=== PATIENT | female | born 1995 | race African-American/Black ===

== ENCOUNTER 2016-06-04 19:30 | Emergency (ER) | payer OTHER, SELFPAY ==
[2016-06-04] MEDS ORDERED: Acetaminophen 325 MG TAB ONE (20:06)
[2016-06-04 20:32] LABS: Blood, Urine Moderate (Negative); Glucose, Urine (Dipstick) Negative (Negative); Ketone, Urine > or equal to 80 mg/dL (Negative); Nitrite Negative (Negative); Protein, Urine (Dipstick) 100 mg/dL (Neg-Trace)
[2016-06-04 20:35] LABS: RBC/HPF 0-3 HPF (0-3)
[2016-06-04 20:36] LABS: Bacteria/HPF 3+ HPF (None Seen)
--- NOTE | 2016-06-04 21:54 | ERRECORD ---
[facility] EM[facility]GENCY [facility]ORD HPI FLU-LIKE SYNDROME CHIEF COMPLAINT: Patient presents for evaluation of body aches, Patient presents for evaluation of fatigue, Denies fever. (19:55 PMYE) CHIEF COMPLAINT: Patient presents for evaluation of body aches, Patient presents for evaluation of weakness. (SatJun 05, 2016 00:04 PMYE) HISTORIAN: History provided by patient. (19:55 PMYE) HISTORIAN: History provided by patient. (SatJun 05, 2016 00:04 PMYE) LOCATION: Symptoms are generalized. (19:55 PMYE) LOCATION: Symptoms are generalized. (SatJun 05, 2016 00:04 PMYE) TIME COURSE: Gradual onset of symptoms, Symptoms are worsening. (19:55 PMYE) TIME COURSE: Gradual onset of symptoms, There has been no change in the patient's symptoms over time. (SatJun 05, 2016 00:04 PMYE) ASSOCIATED WITH: No associated headache, nausea, myalgia, arthralgia. (19:55 PMYE) ASSOCIATED WITH: No associated symptoms, 20 y/o F w/ generalizaed body aches and weakness x 1 day. No abdominal pain. (SatJun 05, 2016 00:04 PMYE) EXACERBATED BY: Patient's condition exacerbated by nothing. (19:55 PMYE) EXACERBATED BY: Patient's condition exacerbated by nothing. (SatJun 05, 2016 00:04 PMYE) RELIEVED BY: Patient's condition relieved by nothing. (19:55 PMYE) RELIEVED BY: Patient's condition relieved by nothing. (SatJun 05, 2016 00:04 PMYE) ROS (19:56 PMYE) CONSTITUTIONAL: Negative constitutional review of systems, Historian denies chills, denies fatigue, denies fever. EYES: Negative eye review of systems, Historian denies eye pain, denies eye redness, denies eye discharge. ENT: Negative ears, nose, throat review of systems, Historian denies dysphasia, denies epistaxis, denies otalgia, denies sore throat. CARDIOVASCULAR: Negative cardiovascular review of systems, Historian denies chest pain, denies dyspnea on exertion, denies syncope, denies palpitations. RESPIRATORY: Negative respiratory review of systems, Historian denies cough, denies shortness of breath, denies wheezing. GI: Negative gastrointestinal review of systems, Historian denies abdominal pain, denies constipation, denies diarrhea, denies nausea, denies vomiting. GENITOURINARY FEMALE: Negative genitourinary review of systems, Historian denies dysuria, denies urgency, denies vaginal bleeding, denies vaginal discharge. MUSCULOSKELETAL: Historian denies arthralgias, reports myalgias. SKIN: Negative skin review of systems, Historian denies rash, denies skin changes. SKIN PED: Negative skin review of systems, Historian denies rash. &a-1R&a+25V*p+0X*[id number]*c202B*c15G*c2P*p-0X&a-25V&a+1R Name: Brett Ware : 1995 F20 MedRec: [id number] AcctNum: [id number] Prepared: Sally Jun 05, 2016 00:47 by Interface Page 1 of 3 pMD [facility] EMERGENCY RECORD NEUROLOGIC: Negative neurologic review of systems, Historian denies confusion, denies focal weakness, denies headache. HEMO/LYMPHATIC: Historian denies adenopathy. PSYCHIATRIC: Negative psychiatric review of systems. PSYCHIATRIC/BEHAVIORAL: Negative psychiatric review of systems. PAST MEDICAL HISTORY (19:39 [facility]) MEDICAL HISTORY: No past medical history, Flu vaccine up to date, Tetanus immunization up to date. FEMALE SURGICAL HISTORY: Patient has no surgical history. PSYCHIATRIC HISTORY: No previous psychiatric history. SOCIAL HISTORY: Patient denies alcohol use, Patient denies drug use, Patient has no smoking history, Lives at home, with family. KNOWN ALLERGIES No Known Drug Allergies CURRENT MEDICATIONS No recorded medications VITAL SIGNS VITAL SIGNS: BP: 119/73, Pulse: 81, Resp: 16, Temp: 99.3 (Oral), Pain: 10 (Constant), O2 sat: 100 on Room Air, Time: 06/04/2016 19:34. (19:34 [facility]) BP: 100/62, Pulse: 82, Resp: 18, Temp: 98.1, Pain: 7, O2 sat: 98 on RA, Time: 06/04/2016 21:31. (21:31 [facility]) PHYSICAL EXAM (20:00 PMYE) CONSTITUTIONAL: Vital Signs Reviewed, Patient afebrile, Pulse normal, Blood pressure normal, Respiratory rate normal, Patient appears non toxic. HEAD: Head exam included findings of head atraumatic, normocephalic. EYES: Eye exam included findings of eyelids normal to inspection, Pupils equally round and reactive to light, Extraocular muscles intact. ENT: ENT exam normal, Pharynx exam normal, Uvula exam normal, Tonsil exam normal. NECK: Neck exam normal. RESPIRATORY CHEST: Respiratory and chest exam normal, Breath sounds clear, No wheezing, No rales. ABDOMEN FEMALE: Abdominal exam normal, Abdominal exam included findings of abdomen nontender, Bowel sounds normal. BACK: Back exam normal. NEURO: Neuro exam normal, [place] coma scale 15, Neuro exam findings include patient oriented to person, place and time, Speech normal. SKIN: Skin exam normal. PSYCHIATRIC: Psychiatric exam normal, Psychiatric exam included &a-1R&a+25V*p+0X*u0707E*c202B*c15G*c2P*p-0X&a-25V&a+1R Name: Brett Ware : 1995 F20 MedRec: [id number] AcctNum: [id number] Prepared: SatJun 05, 2016 00:47 by Interface Page 2 of 3 pMD [facility] EMERGENCY RECORD findings of patient oriented to person place and time, Normal affect. MEDICATION ADMINISTRATION SUMMARY Drug Name: Tylenol, Dose Ordered: 650 mg, Route: Oral, Status: Given, Time: 20:12 06/04/2016, Drug Name: Zofran oral, Dose Ordered: 4 mg, Route: Oral, Status: Given, Time: 20:12 06/04/2016, Detailed record available in Medication Service section. DOCTOR NOTES (SatJun 05, 2016 00:09 PMYE) TEXT: Patient is well appearing. NAD. Urine WNL, Influenza negative. FHT's identified via dopplar. Pt appropriate for D/C w/ Primary f/u. PROBLEM LIST No recorded problems DIAGNOSIS (21:26 PMYE) FINAL: PRIMARY: viral syndrome. PRESCRIPTION (21:26 PMYE) Zofran oral: TABLET : 4 mg : ORAL : Quantity: 4 Unit: mg Route: ORAL Schedule: every 6 hours PRN Dispense: 20 Unit: tab(s) May substitute. Refills: No Refills . NOTES: No Refills. DISPOSITION PATIENT: Disposition Type: Discharge, Disposition: *Discharge Home, Condition: Good. (21:26 PMYE) Patient left the department. (21:41 TERESA) Jin: TERESA=LINDA Franco, Doreen MEDEL=LINDA Wells, Elida PMYE=DO Handy Paul &a-1R&a+25V*p+0X*[id number]*c202B*c15G*c2P*p-0X&a-25V&a+1R Name: Brett Ware : 1995 F20 MedRec: [id number] AcctNum: [id number] Prepared: Sally Jun 05, 2016 00:47 by Interface Page 3 of 3 pMD MTDD
--- NOTE | 2016-06-04 21:54 | ERRECORD ---
[facility] H[facility] FLU-LIKE SYNDROME (19:55 PMYE) CHIEF COMPLAINT: Patient presents for evaluation of body aches, Patient presents for evaluation of fatigue, Denies fever. HISTORIAN: History provided by patient. LOCATION: Symptoms are generalized. TIME COURSE: Gradual onset of symptoms, Symptoms are worsening. ASSOCIATED WITH: No associated headache, nausea, myalgia, arthralgia. EXACERBATED BY: Patient's condition exacerbated by nothing. RELIEVED BY: Patient's condition relieved by nothing. ROS (19:56 PMYE) CONSTITUTIONAL: Negative constitutional review of systems, Historian denies chills, denies fatigue, denies fever. EYES: Negative eye review of systems, Historian denies eye pain, denies eye redness, denies eye discharge. ENT: Negative ears, nose, throat review of systems, Historian denies dysphasia, denies epistaxis, denies otalgia, denies sore throat. CARDIOVASCULAR: Negative cardiovascular review of systems, Historian denies chest pain, denies dyspnea on exertion, denies syncope, denies palpitations. RESPIRATORY: Negative respiratory review of systems, Historian denies cough, denies shortness of breath, denies wheezing. GI: Negative gastrointestinal review of systems, Historian denies abdominal pain, denies constipation, denies diarrhea, denies nausea, denies vomiting. GENITOURINARY FEMALE: Negative genitourinary review of systems, Historian denies dysuria, denies urgency, denies vaginal bleeding, denies vaginal discharge. MUSCULOSKELETAL: Historian denies arthralgias, denies myalgias. SKIN: Negative skin review of systems, Historian denies rash, denies skin changes. SKIN PED: Negative skin review of systems, Historian denies rash. NEUROLOGIC: Negative neurologic review of systems, Historian denies confusion, denies focal weakness, denies headache. HEMO/LYMPHATIC: Historian denies adenopathy. PSYCHIATRIC: Negative psychiatric review of systems. PSYCHIATRIC/BEHAVIORAL: Negative psychiatric review of systems. PAST MEDICAL HISTORY (19:39 [facility]) MEDICAL HISTORY: No past medical history, Flu vaccine up to date, Tetanus immunization up to date. FEMALE SURGICAL HISTORY: Patient has no surgical history. PSYCHIATRIC HISTORY: No previous psychiatric history. SOCIAL HISTORY: Patient denies alcohol use, Patient denies drug use, Patient has no smoking history, Lives at home, with family. KNOWN ALLERGIES &a-1R&a+25V*p+0X*[id number]*c202B*c15G*c2P*p-0X&a-25V&a+1R Name: Brett Ware : 1995 F20 MedRec: [id number] AcctNum: [id number] Prepared: SatJun 04, 2016 21:45 by Interface Page 1 of 3 pMD [facility] EMERGENCY RECORD No Known Drug Allergies CURRENT MEDICATIONS No recorded medications VITAL SIGNS VITAL SIGNS: BP: 119/73, Pulse: 81, Resp: 16, Temp: 99.3 (Oral), Pain: 10 (Constant), O2 sat: 100 on Room Air, Time: 06/04/2016 19:34. (19:34 [facility]) BP: 100/62, Pulse: 82, Resp: 18, Temp: 98.1, Pain: 7, O2 sat: 98 on RA, Time: 06/04/2016 21:31. (21:31 [facility]) PHYSICAL EXAM (20:00 PMYE) CONSTITUTIONAL: Vital Signs Reviewed, Patient afebrile, Pulse normal, Blood pressure normal, Respiratory rate normal, Patient appears non toxic. HEAD: Head exam included findings of head atraumatic, normocephalic. EYES: Eye exam included findings of eyelids normal to inspection, Pupils equally round and reactive to light, Extraocular muscles intact. ENT: ENT exam normal, Pharynx exam normal, Uvula exam normal, Tonsil exam normal. NECK: Neck exam normal. RESPIRATORY CHEST: Respiratory and chest exam normal, Breath sounds clear, No wheezing, No rales. ABDOMEN FEMALE: Abdominal exam normal, Abdominal exam included findings of abdomen nontender, Bowel sounds normal. BACK: Back exam normal. NEURO: Neuro exam normal, [place] coma scale 15, Neuro exam findings include patient oriented to person, place and time, Speech normal. SKIN: Skin exam normal. PSYCHIATRIC: Psychiatric exam normal, Psychiatric exam included findings of patient oriented to person place and time, Normal affect. MEDICATION ADMINISTRATION SUMMARY Drug Name: Tylenol, Dose Ordered: 650 mg, Route: Oral, Status: Given, Time: 20:12 06/04/2016, Drug Name: Zofran oral, Dose Ordered: 4 mg, Route: Oral, Status: Given, Time: 20:12 06/04/2016, Detailed record available in Medication Service section. PROBLEM LIST No recorded problems DIAGNOSIS (21:26 PMYE) FINAL: PRIMARY: viral syndrome. &a-1R&a+25V*p+0X*w0735I*c202B*c15G*c2P*p-0X&a-25V&a+1R Name: Brett Ware : 1995 F20 MedRec: [id number] AcctNum: [id number] Prepared: SatJun 04, 2016 21:45 by Interface Page 2 of 3 pMD [facility] EMERGENCY RECORD PRESCRIPTION (21:26 PMYE) Zofran oral: TABLET : 4 mg : ORAL : Quantity: 4 Unit: mg Route: ORAL Schedule: every 6 hours PRN Dispense: 20 Unit: tab(s) May substitute. Refills: No Refills . NOTES: No Refills. DISPOSITION PATIENT: Disposition Type: Discharge, Disposition: *Discharge Home, Condition: Good. (21:26 PMYE) Patient left the department. (21:41 TERESA) Jin: TERESA=LINDA Franco, Doreen [facility]=LINDA Wells, Elida PMYE=DO Handy Paul &a-1R&a+25V*p+0X*[id number]*c202B*c15G*c2P*p-0X&a-25V&a+1R Name: Brett Ware : 1995 F20 MedRec: [id number] AcctNum: [id number] Prepared: SatJun 04, 2016 21:45 by Interface Page 3 of 3 pMD MTDD
--- NOTE | 2016-06-04 21:58 | PICIS ---
[facility] EMERGENCY RECORD TRIAGE (SatJun 04, 2016 19:37 [facility]) TRIAGE NOTES: C/O WEAKNESS AND BODY ACHES SINCE THIS MORNING. 11 WEEKS . (SatJun 04, 2016 19:37 [facility]) PATIENT: NAME: Brett Ware, AGE: 20, GENDER: female, : Na 1995, TIME OF GREET: SatJun 04, 2016 19:31, PREFERRED LANGUAGE: Mosotho, ETHNICITY: Not or , ECODE BILLING MAP: [facility] ER, SSN: [id number], Zip Code: [address], KG WEIGHT: 77.11 (est.), PHONE: , , , PERSON ID: [id number], PCP: KERMIT DICKERSON . (SatJun 04, 2016 19:37 [facility]) COMPLAINT: WEAK,BODY ACHE SINCE THIS AM,11 WKS PREG. (SatJun 04, 2016 19:37 [facility]) ADMISSION: URGENCY: 4 Non Urgent, ADMISSION SOURCE: Home, TRANSPORT: CAR, BED: ER -05. (SatJun 04, 2016 19:37 [facility]) ASSESSMENT: Symptoms began 06/04/2016 06:00. (19:39 [facility]) PAIN: Patient complains of pain described as, aching, on a scale 0-10 patient rates pain as 10, Location BODY ACHES, Pain is constant, Onset was 06/04/2016 06:00. (19:39 [facility]) IMMUNIZATIONS: Flu vaccine up to date, Tetanus immunization up to date. (19:39 [facility]) SIRS SCORING: Heart Rate 55-109 (0), Temp range 96.8-101.1 (0), respiratory rate 12-24 (0), Mental Status altered: no (0). (19:39 [facility]) TRIAGE SCREENING: Patient denies suicidal ideation, Patient denies presence of domestic violence. (19:39 [facility]) TREATMENTS IN PROGRESS: Treatments given Prehospital: NONE. (19:39 [facility]) PROVIDERS: TRIAGE NURSE: Elida Wells RN. (SatJun 04, 2016 19:37 [facility]) VITAL SIGNS: BP 119/73, Pulse 81, Resp 16, Temp 99.3, (Oral), Pain 10, (Constant), O2 Sat 100, on Room Air, Time 06/04/2016 19:34. (19:34 [facility]) PREVIOUS VISIT ALLERGIES: No Known Drug Allergies. (SatJun 04, 2016 19:37 [facility]) No Known Drug Allergies. (19:39 [facility]) KNOWN ALLERGIES No Known Drug Allergies CURRENT MEDICATIONS No recorded medications VITAL SIGNS VITAL SIGNS: BP: 119/73, Pulse: 81, Resp: 16, Temp: 99.3 (Oral), Pain: 10 (Constant), O2 sat: 100 on Room Air, Time: 06/04/2016 19:34. (19:34 [facility]) BP: 100/62, Pulse: 82, Resp: 18, Temp: 98.1, Pain: 7, O2 sat: 98 on RA, Time: 06/04/2016 21:31. [facility] &a-1R&a+25V*p+0X*d0118S*c202B*c15G*c2P*p-0X&a-25V&a+1R Name: Brett Ware Kar : 1995 F20 MedRec: [id number] AcctNum: [id number] Prepared: SatJun 05, 2016 00:54 by Interface Page 1 of 8 pMD [facility] EMERGENCY RECORD NURSING ASSESSMENT: HEAD-TO-TOE CONSTITUTIONAL: Complex assessment performed, Patient arrives, via hospital wheelchair, History obtained from patient, Patient appears comfortable, Patient cooperative, Patient alert, Oriented to person, place and time, Skin warm, Skin dry, Skin normal in color, Mucous membranes pink, Mucous membranes moist, Patient is well-groomed, Patient complains of WEAKNESS/BODY ACHES. (19:44 [facility]) PAIN: aching pain, "MY WHOLE BODY HURTS", Onset of pain 06/04/2016 06:00, constant, on a scale 0-10 patient rates pain as 10. (19:44 [facility]) SKIN: Skin assessment findings include skin warm, Skin dry, Skin normal in color. (19:44 [facility]) NEURO: Pupils equally round and reactive to light, Able to close eyes, Face symmetrical, Speech normal, GCS:, Eye opening: (4) - Spontaneous, Verbal: (5) - Oriented/conversive, Motor: (6) - Obeys commands/Spontaneous, GCS Total: 15, no associated fever, no associated vomiting. (19:44 [facility]) ENT: Ear assessment findings include ear normal to inspection, Nasal assessment findings include nose normal to inspection, Mouth and throat assessment findings include mouth inspection normal, no associated fever, no associated headache. (19:44 [facility]) RESPIRATORY/CHEST: Breath sounds clear, Respiratory assessment findings include respiratory effort easy, Respirations regular, Conversing normally, Neck and chest exam findings include trachea midline, Chest expansion equal, Chest movement symmetrical, no associated cough noted, no associated fever. (19:44 [facility]) ABDOMEN: no associated nausea, no associated vomiting, no associated diarrhea, no associated constipation. (19:44 [facility]) GENITOURINARY FEMALE: Female genitourinary assessment findings include external genitalia normal, no associated urinary complaints, no associated vaginal discharge, no associated vaginal bleeding, , per patient, Gestational age 9-12 weeks by history, milestones: 11 WEEKS PER PT, : 2, Spontaneous abortions: 1, MISCARRIED AT 5 1/2 WEEKS. (19:50 [facility]) LEFT LOWER EXTREMITY: Left lower extremity assessment findings include capillary refill less than 2 seconds, Skin color normal, Skin temperature warm, Distal sensation intact, Muscle tone normal, Notes: C/O WEAKNESS. (19:44 [facility]) RIGHT LOWER EXTREMITY: Right lower extremity assessment findings include capillary refill less than 2 seconds, Skin color normal, Skin temperature warm, Distal sensation intact, Muscle tone normal, Notes: C/O WEAKNESS. (19:44 [facility]) NURSING PROCEDURE: DISCHARGE NOTE (21:31 [facility]) DISCHARGE: Patient discharged to home, ambulating without assistance, family driving, accompanied by //partner, Summary of Care printed/ provided, Discharge instructions given to patient, Simple or moderate discharge teaching performed, . Educated and provided handout regarding diagnosis of: &a-1R&a+25V*p+0X*b3404D*c202B*c15G*c2P*p-0X&a-25V&a+1R Name: Brett Ware : 1995 F20 MedRec: [id number] AcctNum: [id number] Prepared: Sally Jun 05, 2016 00:54 by Interface Page 2 of 8 pMD [facility] EMERGENCY RECORD Viral syndrome Follow up with PCP in 1-2 days, Prescriptions given and instructions on side effects given, Name of prescription(s) given: Shelia Moore person(s) verbalized understanding of discharge instructions and follow-up care. BELONGINGS: Belongings and valuables with patient upon arrival to the Emergency Department include:, Belongings and valuables with patient at time of discharge include:, Belongings remain with patient, Valuables remain with patient. VITAL SIGNS: BP: 100, / 62, Pulse: 82, Resp: 18, Temp: 98.1, Pain: 7, O2 sat: 98, on: RA. NURSING PROCEDURE: ENT (19:55 [facility]) ENT: Nasal swab collected, labeled in the presence of the patient and sent to lab for testing of, influenza A, influenza B, collected by LINDA BAXTER. NURSING PROCEDURE: URINE COLLECTION (20:05 [facility]) PATIENT IDENTIFIER: Patient actively involved in identification process, Patient's identity verified by patient stating name, Patient's identity verified by patient stating date, Patient's identity verified by hospital ID bracelet. URINE COLLECTION FEMALE: Urine collected by void, urine mari in color, and clear, Specimen labeled in the presence of the patient and sent to lab. SAFETY: Side rails up, Cart/Stretcher in lowest position, Call light within reach, Hospital ID band on. ORDER DETAILS Order Name: Influenza A&B Ag Screen, Status: Active, Time: 19:53 06/04/2016, User: PMYE, - Ordered for: DO Handy Paul, - Entered by: DO Handy Paul - [facility] Jun 04, 2016 19:53, - Quantity: 1, Order Name: Urinalysis w/ Rflx Microscopic, Status: Active, Time: 19:53 06/04/2016, User: PMYE, - Ordered for: DO Handy Paul, - Entered by: DO Handy Paul - [facility] Jun 04, 2016 19:53, - Quantity: 1. MEDICATION ADMINISTRATION SUMMARY Drug Name: Tylenol, Dose Ordered: 650 mg, Route: Oral, Status: Given, Time: 20:12 06/04/2016, Drug Name: Zofran oral, Dose Ordered: 4 mg, Route: Oral, Status: Given, Time: 20:12 06/04/2016, Detailed record available in Medication Service section. MEDICATION SERVICE (20:12 [facility]) &a-1R&a+25V*p+0X*l7747B*c202B*c15G*c2P*p-0X&a-25V&a+1R Name: Brett Ware : 1995 F20 MedRec: [id number] AcctNum: [id number] Prepared: SatJun 05, 2016 00:54 by Interface Page 3 of 8 pMD [facility] EMERGENCY RECORD Tylenol: Order: Tylenol (acetaminophen) - Dose: 650 mg : Oral Ordered by: Madi Handy DO Entered by: Madi Handy DO SatJun 04, 2016 20:01 , Acknowledged by: Elida Wells RN SatJun 04, 2016 20:05 Documented as given by: Elida Wells RN SatJun 04, 2016 20:12 Patient, Medication, Dose, Route and Time verified prior to administration. Amount given: 650MG, Site: Medication administered P.O., Patient appears Awake and alert- acceptable, Correct patient, time, route, dose and medication confirmed prior to administration, Patient advised of actions and side-effects prior to administration, Allergies confirmed and medications reviewed prior to administration. Zofran oral: Order: Zofran oral (ondansetron HCl) - Dose: 4 mg : Oral Ordered by: Madi Handy DO Entered by: Madi Handy DO SatJun 04, 2016 20:01 , Acknowledged by: Elida Wells RN SatJun 04, 2016 20:05 Documented as given by: Elida Wells RN SatJun 04, 2016 20:12 Patient, Medication, Dose, Route and Time verified prior to administration. Amount given: 4MG, Site: Medication administered P.O., Patient appears Awake and alert- acceptable, Correct patient, time, route, dose and medication confirmed prior to administration, Patient advised of actions and side-effects prior to administration, Allergies confirmed and medications reviewed prior to administration. HPI FLU-LIKE SYNDROME CHIEF COMPLAINT: Patient presents for evaluation of body aches, Patient presents for evaluation of fatigue, Denies fever. (19:55 [facility]) CHIEF COMPLAINT: Patient presents for evaluation of body aches, Patient presents for evaluation of weakness. (SatJun 05, 2016 00:04 [facility]) HISTORIAN: History provided by patient. (19:55 [facility]) HISTORIAN: History provided by patient. (SatJun 05, 2016 00:04 [facility]) LOCATION: Symptoms are generalized. (19:55 [facility]) LOCATION: Symptoms are generalized. (SatJun 05, 2016 00:04 [facility]) TIME COURSE: Gradual onset of symptoms, Symptoms are worsening. (19:55 [facility]) TIME COURSE: Gradual onset of symptoms, There has been no change in the patient's symptoms over time. (SatJun 05, 2016 00:04 [facility]) ASSOCIATED WITH: No associated headache, nausea, myalgia, arthralgia. (19:55 [facility]) ASSOCIATED WITH: No associated symptoms, 20 y/o F w/ generalizaed body aches and weakness x 1 day. No abdominal pain. (SatJun 05, 2016 00:04 [facility]) EXACERBATED BY: Patient's condition exacerbated by nothing. (19:55 [facility]) EXACERBATED BY: Patient's condition exacerbated by nothing. (SatJun 05, 2016 00:04 [facility]) RELIEVED BY: Patient's condition relieved by nothing. (19:55 [facility]) RELIEVED BY: &a-1R&a+25V*p+0X*q2033B*c202B*c15G*c2P*p-0X&a-25V&a+1R Name: Brett Ware : 1995 F20 MedRec: [id number] AcctNum: [id number] Prepared: SatJun 05, 2016 00:54 by Interface Page 4 of 8 pMD [facility] EMERGENCY RECORD Patient's condition relieved by nothing. (SatJun 05, 2016 00:04 [facility]) ROS (19:56 [facility]) CONSTITUTIONAL: Negative constitutional review of systems, Historian denies chills, denies fatigue, denies fever. EYES: Negative eye review of systems, Historian denies eye pain, denies eye redness, denies eye discharge. ENT: Negative ears, nose, throat review of systems, Historian denies dysphasia, denies epistaxis, denies otalgia, denies sore throat. CARDIOVASCULAR: Negative cardiovascular review of systems, Historian denies chest pain, denies dyspnea on exertion, denies syncope, denies palpitations. RESPIRATORY: Negative respiratory review of systems, Historian denies cough, denies shortness of breath, denies wheezing. GI: Negative gastrointestinal review of systems, Historian denies abdominal pain, denies constipation, denies diarrhea, denies nausea, denies vomiting. GENITOURINARY FEMALE: Negative genitourinary review of systems, Historian denies dysuria, denies urgency, denies vaginal bleeding, denies vaginal discharge. MUSCULOSKELETAL: Historian denies arthralgias, reports myalgias. SKIN: Negative skin review of systems, Historian denies rash, denies skin changes. SKIN PED: Negative skin review of systems, Historian denies rash. NEUROLOGIC: Negative neurologic review of systems, Historian denies confusion, denies focal weakness, denies headache. HEMO/LYMPHATIC: Historian denies adenopathy. PSYCHIATRIC: Negative psychiatric review of systems. PSYCHIATRIC/BEHAVIORAL: Negative psychiatric review of systems. PAST MEDICAL HISTORY (19:39 [facility]) MEDICAL HISTORY: No past medical history, Flu vaccine up to date, Tetanus immunization up to date. FEMALE SURGICAL HISTORY: Patient has no surgical history. PSYCHIATRIC HISTORY: No previous psychiatric history. SOCIAL HISTORY: Patient denies alcohol use, Patient denies drug use, Patient has no smoking history, Lives at home, with family. PHYSICAL EXAM (20:00 [facility]) CONSTITUTIONAL: Vital Signs Reviewed, Patient afebrile, Pulse normal, Blood pressure normal, Respiratory rate normal, Patient appears non toxic. HEAD: Head exam included findings of head atraumatic, normocephalic. EYES: Eye exam included findings of eyelids normal to inspection, Pupils equally round and reactive to light, Extraocular muscles &a-1R&a+25V*p+0X*p9939V*c202B*c15G*c2P*p-0X&a-25V&a+1R Name: Brett Ware : 1995 F20 MedRec: [id number] AcctNum: [id number] Prepared: SatJun 05, 2016 00:54 by Interface Page 5 of 8 pMD [facility] EMERGENCY RECORD intact. ENT: ENT exam normal, Pharynx exam normal, Uvula exam normal, Tonsil exam normal. NECK: Neck exam normal. RESPIRATORY CHEST: Respiratory and chest exam normal, Breath sounds clear, No wheezing, No rales. ABDOMEN FEMALE: Abdominal exam normal, Abdominal exam included findings of abdomen nontender, Bowel sounds normal. BACK: Back exam normal. NEURO: Neuro exam normal, Dirk coma scale 15, Neuro exam findings include patient oriented to person, place and time, Speech normal. SKIN: Skin exam normal. PSYCHIATRIC: Psychiatric exam normal, Psychiatric exam included findings of patient oriented to person place and time, Normal affect. EVENTS ATTENDING: DO Handy Paul saw the patient at SatJun 05, 2016 00:10. (SatJun 05, 2016 00:10 PM[facility]) TRANSFER: Triage to Emergency Emergency Room -05. (SatJun 04, 2016 19:37 [facility]) Removed from Emergency Emergency Room -05. (21:41 [facility]) DOCTOR NOTES (SatJun 05, 2016 00:09 PM[facility]) TEXT: Patient is well appearing. NAD. Urine WNL, Influenza negative. FHT's identified via dopplar. Pt appropriate for D/C w/ Primary f/u. PROBLEM LIST No recorded problems DIAGNOSIS (21:26 PM[facility]) FINAL: PRIMARY: viral syndrome. DISPOSITION PATIENT: Disposition Type: Discharge, Disposition: *Discharge Home, Condition: Good. (21:26 PM[facility]) Patient left the department. (21:41 [facility]) INSTRUCTION (21:27 [facility]) DISCHARGE: VIRAL SYNDROME (ADULT). FOLLOWUP: Follow up with Primary Care Physician in 1-2 days. SPECIAL: Follow-up with your PCP. PRESCRIPTION (21:26 [facility]) Zofran oral: TABLET : 4 mg : ORAL : Quantity: 4 Unit: mg Route: ORAL Schedule: every 6 hours PRN Dispense: 20 Unit: tab(s) May substitute. Refills: No Refills . NOTES: No Refills. &a-1R&a+25V*p+0X*u7868A*c202B*c15G*c2P*p-0X&a-25V&a+1R Name: Brett Ware : 1995 F20 MedRec: [id number] AcctNum: [id number] Prepared: SatJun 05, 2016 00:54 by Interface Page 6 of 8 pMD [facility] EMERGENCY RECORD IMAGING (21:47 [facility]) *DISCHARGE INSTRUCTIONS RECEIPT: Image captured from scanner. *SUPPLY CHARGE SHEET: Image captured from scanner. ADMIN (SatJun 05, 2016 00:44 PM[facility]) DIGITAL SIGNATURE: DO Handy Paul. RESULTS (SatJun 05, 2016 00:09 PMYE) MICROBIOLOGY: Influenza A&B Ag Screen: [id number] Collection DT: SatJun 04, 2016 20:10, See comment below , @ ER ROOM#: ER-05 Source: Nasal swab Spec Desc: , Influenza A Antigen: NEGATIVE for the , presence of , INFLUENZA A Antigen , Influenza B Antigen: NEGATIVE for the , presence of , INFLUENZA B Antigen , The rapid Flu A&B test can distinguish between influenza A , Influenza A&B Ag Screen See comment below , and B viruses, but it does not differentiate influenza , Influenza A&B Ag Screen See comment below , subtypes. , Influenza A&B Ag Screen See comment below , Influenza A&B Ag Screen See comment below , Influenza A&B Ag Screen See comment below , Influenza A&B Ag Screen See comment below , characteristics of this device with human specimens infected , Influenza A&B Ag Screen See comment below , with the 2008 H1N1 influenza virus have not been , Influenza A&B Ag Screen See comment below , established. For example: this test cannot distinguish , Influenza A&B Ag Screen See comment below , influenza infections caused by novel H1N1 influenza A , Influenza A&B Ag Screen See comment below , viruses versus seasonal influenza A viruses. , Influenza A&B Ag Screen See comment below , , Influenza A&B Ag Screen See comment below , A negative result does not exclude influenza virus , Influenza A&B Ag Screen See comment below , infection; therefore, if more conclusive testing is desired, , Influenza A&B Ag Screen See comment below , follow up confirmatory testing is warranted., Influenza A&B Ag Screen See comment below . LABORATORY: Urine Microscopic Collection DT: SatJun 04, 2016 20:15, RBC/HPF 0-3 HPF, Range (0-3), *WBC/HPF 4-6 - H HPF, Range (0-3), *Squamous Epithelial 11-20 - H HPF, Range (0-3), &a-1R&a+25V*p+0X*u3172F*c202B*c15G*c2P*p-0X&a-25V&a+1R Name: Brett Ware : 1995 F20 MedRec: [id number] AcctNum: [id number] Prepared: SatJun 05, 2016 00:54 by Interface Page 7 of 8 pMD [facility] EMERGENCY RECORD *Bacteria/HPF 3+ - H HPF, Range (None Seen). Urinalysis w/ Rflx Microscopic Collection DT: SatJun 04, 2016 20:15, Color Yellow , Range (Yellow), Clarity Hazy , Range (Clear), Specific [place], Urine 1.032 , Range (1.002-1.036), pH, Urine 6.0 , Range (5.0-9.0), *Leukocyte Trace - H , Range (Negative), Nitrite Negative , Range (Negative), *Protein, Urine (Dipstick) 100 - H mg/dL, Range (Neg-Trace), Glucose, Urine (Dipstick) Negative mg/dL, Range (Negative), *Ketone, Urine > or equal to 80 - mg/dL, * H , Range (Negative), Urobilinogen 1.0 mg/dL, Range (0.2-1.0), *Blood, Urine Moderate - H , Range (Negative). Jin: TERESA=LINDA Franco, Doreen [facility]=LINDA Wells, Elida PMYE=DO Handy Paul &a-1R&a+25V*p+0X*s5716S*c202B*c15G*c2P*p-0X&a-25V&a+1R Name: Brett Ware : 1995 F20 MedRec: [id number] AcctNum: [id number] Prepared: SatJun 05, 2016 00:54 by Interface Page 8 of 8 pMD [facility]TD[facility]
== END 2016-06-04 21:31 | disposition home or self-care (01) ==
LOC: NAV ERS 19:30
DX: O98.511 Other viral diseases complicating pregnancy, first trimester (principal); B34.9 Viral infection, unspecified; Z3A.11 11 weeks gestation of pregnancy
CPT/HCPCS: 81003; 81015; 99283

== ENCOUNTER 2016-06-28 22:27 | Emergency (ER) | payer MEDICAID, OTHER, SELFPAY | END 2016-06-29 00:11 | disposition home or self-care (01) | LOC: NAV ERS 22:27 | DX: O99.89 Other specified diseases and conditions complicating pregnancy, childbirth and the puerperium (principal); R51 Headache | CPT/HCPCS: 99284 ==

== ENCOUNTER 2016-07-06 22:50 | Emergency (ER) | payer OTHER ==
[2016-07-06 23:24] LABS: Blood, Urine Moderate (Negative); Glucose, Urine (Dipstick) Negative (Negative); Ketone, Urine Trace mg/dL (Negative); Nitrite Negative (Negative); Protein, Urine (Dipstick) 100 mg/dL (Neg-Trace)
[2016-07-06 23:27] LABS: Bilirubin Negative (Negative)
[2016-07-06] MEDS ORDERED: Acetaminophen/Codeine 30-300mg Tablet ONE ×2 (23:27→23:29)
[2016-07-06 23:28] LABS: Bacteria/HPF 1+ HPF (None Seen)
[2016-07-07] MEDS ORDERED: Cephalexin 500 MG CAP ONE (00:01)
== END 2016-07-07 00:01 | disposition home or self-care (01) ==
LOC: NAV ERS 22:50
DX: O23.42 Unspecified infection of urinary tract in pregnancy, second trimester (principal); Z3A.16 16 weeks gestation of pregnancy; Z79.899 Other long term (current) drug therapy
CPT/HCPCS: 81003; 81015; 87077; 87086; 99284

== ENCOUNTER 2016-08-07 21:28 | Emergency (ER) | payer OTHER ==
[2016-08-07] MEDS ORDERED: Sodium Chloride 0.9% 1,000 ML ONE (22:04)
[2016-08-07 22:31] LABS: Bilirubin Negative (Negative); Blood, Urine Small (Negative); Clarity Clear (Clear); Glucose, Urine (Dipstick) Negative (Negative); Leukocyte Small (Negative); Nitrite Negative (Negative); Protein, Urine (Dipstick) 30 mg/dL (Neg-Trace)
[2016-08-07 22:34] LABS: #Basophils 0.1 thou/uL (0.0-0.2); #Eosinphils 0.1 thou/uL (0.0-0.7); #Neutrophils 10.3 thou/uL (1.40-6.50); %Basophils 0.6 % (0.0-1.0); %Eosinophils 0.8 % (0.0-10.0); %Lymphocytes 20.8 % (21.0-51.0); %Monocytes 6.6 % (0.0-10.0); %Neutrophils 71.2 % (42.0-75.0); Hemoglobin 9.6 g/dL (12.0-16.0); Mean Corpuscular HGB CONC 33.6 g/dL (32.0-36.0); Mean Corpuscular Hemoglobin 28.8 pg (27.0-31.0); Mean Corpuscular Volume 85.7 fl (81.0-99.0); Mean Platelet Volume 8.3 fL (7.4-10.4); Platelet Count 289 thou/uL (130-400); RBC Distribution Width 12.6 % (11.5-14.5); Red Blood Cell (RBC) Count 3.34 mill/uL (4.20-5.40); White Blood Cell (WBC) Count 14.4 thou/uL (4.8-10.8)
[2016-08-07 22:45] LABS: Anion Gap 15 mmol/L (10-20); BUN (Urea Nitrogen) 7 mg/dL (7.0-18.7); Calc. Creatinine Clearance 0 mL/min (70-130); Calcium 8.6 mg/dL (7.8-10.44); Carbon Dioxide 18 mmol/L (22-29); Chloride 108 mmol/L (98-107); Estimated GFR-MDRD Greater than 90; Glucose 101 mg/dL (70-105); Potassium 3.8 mmol/L (3.5-5.1); Sodium 137 mmol/L (136-145)
[2016-08-07 22:47] LABS: Specific Gravity, Urine 1.034 (1.002-1.036)
[2016-08-07 22:49] LABS: Bacteria/HPF Rare-Few HPF (None Seen); RBC/HPF 0-3 HPF (0-3); Squamous Epithelial 0-3 HPF (0-3)
[2016-08-07] MEDS ORDERED: Acetaminophen 500 MG TAB ONE (23:07)
[2016-08-07] MEDS ORDERED: Nitrofurantoin Macrocrystal 50 MG CAP ONE (23:07)
== END 2016-08-07 23:30 | disposition home or self-care (01) ==
LOC: NAV ERS 21:28
DX: O99.89 Other specified diseases and conditions complicating pregnancy, childbirth and the puerperium (principal); R10.32 Left lower quadrant pain; Z3A.20 20 weeks gestation of pregnancy
CPT/HCPCS: 80048; 81003; 81015; 85025; 87086; 87480; 87510; 87660; 96360; J7050

== ENCOUNTER 2016-08-28 13:19 | Emergency (ER) | payer OTHER | END 2016-08-28 13:44 | disposition home or self-care (01) | LOC: NAV ERS 13:19 | DX: O9A.212 Injury, poisoning and certain other consequences of external causes complicating pregnancy, second trimester (principal); S29.012A Strain of muscle and tendon of back wall of thorax, initial encounter; Z3A.23 23 weeks gestation of pregnancy; Z79.899 Other long term (current) drug therapy; X58.XXXA Exposure to other specified factors, initial encounter | CPT/HCPCS: 99283 ==

== ENCOUNTER 2016-09-29 03:17 | Emergency (ER) | payer MEDICAID, OTHER | END 2016-09-29 03:52 | disposition home or self-care (01) | LOC: NAV ERS 03:17 | DX: O99.89 Other specified diseases and conditions complicating pregnancy, childbirth and the puerperium (principal); R10.32 Left lower quadrant pain; Z3A.28 28 weeks gestation of pregnancy; Z79.899 Other long term (current) drug therapy ==

== ENCOUNTER 2016-12-18 01:26 | Emergency (ER) | payer MEDICAID, OTHER | END 2016-12-18 02:43 | disposition home or self-care (01) | LOC: NAV ERS 01:26 | DX: O99.89 Other specified diseases and conditions complicating pregnancy, childbirth and the puerperium (principal); R10.2 Pelvic and perineal pain; Z3A.39 39 weeks gestation of pregnancy | CPT/HCPCS: 99283 ==

== ENCOUNTER 2017-06-25 15:48 | Emergency (ER) | payer OTHER ==
[2017-06-25] MEDS ORDERED: Silver Sulfadiazine 1% Cream 50 GM JAR ONE (16:09)
== END 2017-06-25 16:30 | disposition home or self-care (01) ==
LOC: NAV ERS 15:48
DX: T23.121A Burn of first degree of single right finger (nail) except thumb, initial encounter (principal); X10.1XXA Contact with hot food, initial encounter
CPT/HCPCS: 16000; 99001

== ENCOUNTER 2018-12-22 02:42 | Emergency (ER) | payer OTHER, SELFPAY ==
[2018-12-22 03:16] LABS: Bilirubin Negative (Negative); Blood, Urine Moderate (Negative); Clarity Clear (Clear); Glucose, Urine (Dipstick) Negative (Negative); Leukocyte Negative (Negative); Nitrite Negative (Negative); Protein, Urine (Dipstick) Negative (Neg-Trace)
[2018-12-22 03:19] LABS: Pregnancy Test - Urine (BHCG) Negative (Negative); Pregu Control Background? CLEAR/WHITE (CLR/WHITE); Pregu Control Bar Appear? YES (CONTROL BAR)
[2018-12-22 03:21] LABS: Bacteria/HPF None Seen HPF (None Seen); Squamous Epithelial 0-3 HPF (0-3); WBC/HPF None Seen HPF (0-3)
[2018-12-22 03:36] LABS: #Basophils 0.1 thou/uL (0.0-0.2); #Eosinphils 0.2 thou/uL (0.0-0.7); #Lymphocytes 3.5 thou/uL (1.20-3.40); #Monocytes 0.8 thou/uL (0.11-0.59); #Neutrophils 4.9 thou/uL (1.40-6.50); %Basophils 0.6 % (0.0-1.0); %Eosinophils 2.5 % (0.0-10.0); %Lymphocytes 37.3 % (21.0-51.0); %Monocytes 8.2 % (0.0-10.0); %Neutrophils 51.3 % (42.0-75.0); Hemoglobin 9.8 g/dL (12.0-16.0); Mean Corpuscular HGB CONC 30.7 g/dL (32.0-36.0); Mean Corpuscular Hemoglobin 25.3 pg (27.0-31.0); Mean Corpuscular Volume 82.3 fL (78.0-98.0); Mean Platelet Volume 7.5 fL (7.4-10.4); Platelet Count 352 thou/uL (130-400); RBC Distribution Width 12.8 % (11.5-14.5); Red Blood Cell (RBC) Count 3.89 mill/uL (4.20-5.40); White Blood Cell (WBC) Count 9.5 thou/uL (4.8-10.8)
[2018-12-22 03:52] LABS: ALT (SGPT) 16 U/L (8-55); AST (SGOT) 19 U/L (5-34); Alkaline Phosphatase 71 U/L (40-150); Anion Gap 15 mmol/L (10-20); BUN (Urea Nitrogen) 10 mg/dL (7.0-18.7); Bilirubin, Total 0.1 mg/dL (0.2-1.2); Calc. Creatinine Clearance 0 mL/min (70-130); Calcium 9.2 mg/dL (7.8-10.44); Carbon Dioxide 23 mmol/L (22-29); Chloride 105 mmol/L (98-107); Estimated GFR-MDRD Greater than 90; Globulin 3.4 g/dL (2.4-3.5); Glucose 95 mg/dL (70-105); Lipase 35 U/L (8-78); Protein, Total 7.4 g/dL (6.0-8.3); Sodium 139 mmol/L (136-145)
[2018-12-23 20:23] LABS: Chlam.trachomatis by PCR,Urine Not Detected (NotDetected)
== END 2018-12-22 04:13 | disposition home or self-care (01) ==
LOC: NAV ERS 02:42
DX: R10.31 Right lower quadrant pain (principal); D64.9 Anemia, unspecified; R31.29 Other microscopic hematuria
CPT/HCPCS: 80053; 81003; 81015; 81025; 83690; 85025; 87086; 87480; 87491; 87510; 87591; 87660; 99284

== ENCOUNTER 2019-01-14 00:20 | Emergency (ER) | payer MEDICAID, SELFPAY ==
[2019-01-14 01:00] LABS: Pregnancy Test - Urine (BHCG) POSITIVE (Negative); Pregu Control Background? CLEAR/WHITE (CLR/WHITE); Pregu Control Bar Appear? YES (CONTROL BAR); Specific Gravity 1.032 (1.002-1.036)
== END 2019-01-14 01:09 | disposition home or self-care (01) ==
LOC: NAV ERS 00:20
DX: O26.891 Other specified pregnancy related conditions, first trimester (principal); M54.5 Low back pain; Z3A.01 Less than 8 weeks gestation of pregnancy
CPT/HCPCS: 81025; 99283

== ENCOUNTER 2019-02-05 10:24 | Emergency (ER) | payer MEDICAID, OTHER ==
[2019-02-05] MEDS ORDERED: Ondansetron PF 4 MG/2 ML Vial ONE (11:16)
[2019-02-05] MEDS ORDERED: Sodium Chloride 0.9% 1,000 ML ONE (11:16)
[2019-02-05 12:00] LABS: #Lymphocytes 1.5 thou/uL (1.20-3.40); #Monocytes 0.6 thou/uL (0.11-0.59); #Neutrophils 10.7 thou/uL (1.40-6.50); %Basophils 0.3 % (0.0-1.0); %Eosinophils 0.1 % (0.0-10.0); %Lymphocytes 11.4 % (21.0-51.0); %Monocytes 4.5 % (0.0-10.0); %Neutrophils 83.7 % (42.0-75.0); Hemoglobin 11.8 g/dL (12.0-16.0); Mean Corpuscular HGB CONC 31.4 g/dL (32.0-36.0); Mean Corpuscular Volume 79.7 fL (78.0-98.0); Platelet Count 400 thou/uL (130-400); RBC Distribution Width 12.7 % (11.5-14.5); Red Blood Cell (RBC) Count 4.72 mill/uL (4.20-5.40); White Blood Cell (WBC) Count 12.8 thou/uL (4.8-10.8)
[2019-02-05 12:03] LABS: Bilirubin Small (Negative); Blood, Urine Small (Negative); Clarity Clear (Clear); Glucose, Urine (Dipstick) Negative (Negative); Leukocyte Negative (Negative); Nitrite Negative (Negative); Protein, Urine (Dipstick) 100 mg/dL (Neg-Trace)
[2019-02-05 12:19] LABS: ALT (SGPT) 13 U/L (8-55); AST (SGOT) 16 U/L (5-34); Albumin 4.5 g/dL (3.5-5.0); Alkaline Phosphatase 64 U/L (40-110); Anion Gap 16 mmol/L (10-20); BUN (Urea Nitrogen) 8 mg/dL (7.0-18.7); Bilirubin, Total 0.3 mg/dL (0.2-1.2); Calc. Creatinine Clearance 0 mL/min (70-130); Carbon Dioxide 22 mmol/L (22-29); Chloride 102 mmol/L (98-107); Estimated GFR-MDRD Greater than 90; Glucose 99 mg/dL (70-105); Lipase 49 U/L (8-78); Potassium 3.8 mmol/L (3.5-5.1); Protein, Total 8.5 g/dL (6.0-8.3); Sodium 136 mmol/L (136-145)
[2019-02-05 12:29] LABS: Bacteria/HPF Rare-Few HPF (None Seen); WBC/HPF 0-3 HPF (0-3)
[2019-02-05] MEDS ORDERED: Ondansetron ODT 4 MG TAB ONE (12:34)
== END 2019-02-05 14:33 | disposition home or self-care (01) ==
LOC: NAV ERS 10:24
DX: O21.9 Vomiting of pregnancy, unspecified (principal); O99.281 Endocrine, nutritional and metabolic diseases complicating pregnancy, first trimester; E86.0 Dehydration; Z3A.01 Less than 8 weeks gestation of pregnancy
CPT/HCPCS: 80053; 81003; 81015; 83690; 85025; 99284; J2405; J7050; Q0162

== ENCOUNTER 2019-02-11 22:16 | Emergency (ER) | payer MEDICAID ==
[2019-02-11 23:04] LABS: #Eosinphils 0.1 thou/uL (0.0-0.7); #Lymphocytes 2.7 thou/uL (1.20-3.40); #Monocytes 0.9 thou/uL (0.11-0.59); #Neutrophils 10.3 thou/uL (1.40-6.50); %Basophils 0.2 % (0.0-1.0); %Eosinophils 0.6 % (0.0-10.0); %Lymphocytes 19.2 % (21.0-51.0); %Monocytes 6.6 % (0.0-10.0); %Neutrophils 73.3 % (42.0-75.0); Hemoglobin 10.6 g/dL (12.0-16.0); Mean Corpuscular HGB CONC 32.2 g/dL (32.0-36.0); Mean Corpuscular Hemoglobin 25.7 pg (27.0-31.0); Mean Corpuscular Volume 79.8 fL (78.0-98.0); Mean Platelet Volume 7.4 fL (7.4-10.4); Platelet Count 353 thou/uL (130-400); Red Blood Cell (RBC) Count 4.14 mill/uL (4.20-5.40); White Blood Cell (WBC) Count 14.1 thou/uL (4.8-10.8)
[2019-02-11 23:23] LABS: ALT (SGPT) 14 U/L (8-55); AST (SGOT) 15 U/L (5-34); Albumin 4.1 g/dL (3.5-5.0); Alkaline Phosphatase 54 U/L (40-110); Anion Gap 15 mmol/L (10-20); BUN (Urea Nitrogen) 6 mg/dL (7.0-18.7); Bilirubin, Total 0.2 mg/dL (0.2-1.2); Calc. Creatinine Clearance 0 mL/min (70-130); Calcium 9.5 mg/dL (7.8-10.44); Carbon Dioxide 21 mmol/L (22-29); Chloride 104 mmol/L (98-107); Estimated GFR-MDRD Greater than 90; Globulin 3.4 g/dL (2.4-3.5); Glucose 88 mg/dL (70-105); Potassium 3.6 mmol/L (3.5-5.1); Protein, Total 7.5 g/dL (6.0-8.3); Sodium 136 mmol/L (136-145)
[2019-02-11 23:29] LABS: Bilirubin Negative (Negative); Blood, Urine Small (Negative); Clarity Clear (Clear); Glucose, Urine (Dipstick) Negative (Negative); Leukocyte Negative (Negative); Nitrite Negative (Negative); Protein, Urine (Dipstick) 30 mg/dL (Neg-Trace); Urobilinogen 0.2 mg/dL (Less than 2)
[2019-02-11 23:31] LABS: Bacteria/HPF None Seen HPF (None Seen); WBC/HPF None Seen HPF (0-3)
== END 2019-02-12 00:21 | disposition short-term general hospital (02) ==
LOC: NAV ERS 22:16
DX: O99.89 Other specified diseases and conditions complicating pregnancy, childbirth and the puerperium (principal); M54.5 Low back pain; Z3A.01 Less than 8 weeks gestation of pregnancy
CPT/HCPCS: 36415; 80053; 81003; 81015; 84702; 85025; 99284

== ENCOUNTER 2019-03-28 11:05 | Emergency (ER) | payer OTHER | END 2019-03-28 12:00 | disposition home or self-care (01) | LOC: NAV ERS 11:05 | DX: O99.512 Diseases of the respiratory system complicating pregnancy, second trimester (principal); J06.9 Acute upper respiratory infection, unspecified; Z3A.15 15 weeks gestation of pregnancy | CPT/HCPCS: 87804; 99283 ==

== ENCOUNTER 2019-06-25 12:40 | Emergency (ER) | payer OTHER ==
[2019-06-25 13:20] LABS: Bilirubin Small (Negative); Blood, Urine Small (Negative); Glucose, Urine (Dipstick) Negative (Negative); Leukocyte Small (Negative); Nitrite Negative (Negative); Protein, Urine (Dipstick) 30 mg/dL (Neg-Trace)
[2019-06-25 13:29] LABS: Clarity Hazy (Clear); Transitional Epithelial 0-3 HPF (None Seen)
[2019-06-25 13:30] LABS: Bacteria/HPF 3+ HPF (None Seen)
[2019-06-25 13:54] LABS: #Lymphocytes 1.2 thou/uL (1.20-3.40); #Monocytes 0.9 thou/uL (0.11-0.59); #Neutrophils 12.7 thou/uL (1.40-6.50); %Basophils 0.2 % (0.0-1.0); %Eosinophils 0.1 % (0.0-10.0); %Neutrophils 85.7 % (42.0-75.0); Hemoglobin 9.6 g/dL (12.0-16.0); Mean Corpuscular HGB CONC 31.7 g/dL (32.0-36.0); Mean Corpuscular Hemoglobin 26.5 pg (27.0-31.0); Mean Corpuscular Volume 83.6 fL (78.0-98.0); Mean Platelet Volume 7.5 fL (7.4-10.4); Platelet Count 304 thou/uL (130-400); RBC Distribution Width 13.1 % (11.5-14.5); Red Blood Cell (RBC) Count 3.62 mill/uL (4.20-5.40); White Blood Cell (WBC) Count 14.8 thou/uL (4.8-10.8)
[2019-06-25 14:20] LABS: Anion Gap 13 mmol/L (10-20); BUN (Urea Nitrogen) 4 mg/dL (7.0-18.7); Calc. Creatinine Clearance 0 mL/min (70-130); Calcium 8.7 mg/dL (7.8-10.44); Carbon Dioxide 18 mmol/L (22-29); Chloride 106 mmol/L (98-107); Estimated GFR-MDRD Greater than 90; Glucose 78 mg/dL (70-105); Potassium 3.4 mmol/L (3.5-5.1); Sodium 134 mmol/L (136-145)
[2019-06-25] MEDS ORDERED: Sodium Chloride 0.9% 1,000 ML ONE (14:42)
[2019-06-25] MEDS ORDERED: Sodium Chloride 0.9% 100 ML ONE (14:43)
[2019-06-25] MEDS ORDERED: cefTRIAXone\\ROCEPHIN 2 GM VIAL ONE (14:43)
[2019-06-25 14:46] LABS: Bilirubin Small (Negative); Blood, Urine Trace (Negative); Clarity Clear (Clear); Glucose, Urine (Dipstick) Negative (Negative); Leukocyte Negative (Negative); Nitrite Negative (Negative); Protein, Urine (Dipstick) Trace mg/dL (Neg-Trace)
[2019-06-25 14:51] LABS: Mucous/LPF 2+ LPF (<2+); Squamous Epithelial 0-3 HPF (0-3); WBC/HPF 0-3 HPF (0-3)
[2019-06-25] MEDS ORDERED: Acetaminophen 500 MG TAB ONE (15:53)
== END 2019-06-25 15:59 | disposition short-term general hospital (02) ==
LOC: NAV ERS 12:40
DX: O99.89 Other specified diseases and conditions complicating pregnancy, childbirth and the puerperium (principal); R10.32 Left lower quadrant pain; Z3A.27 27 weeks gestation of pregnancy
CPT/HCPCS: 51701; 80048; 81003; 81015; 85025; 87086; 96361; 96365; A4353; J0696; J3490; J7050

== ENCOUNTER 2019-07-09 20:08 | Emergency (ER) | payer OTHER ==
[2019-07-09 20:50] LABS: Bilirubin Negative (Negative); Blood, Urine Trace (Negative); Glucose, Urine (Dipstick) Negative (Negative); Leukocyte Moderate (Negative); Nitrite Negative (Negative); Protein, Urine (Dipstick) Trace mg/dL (Neg-Trace)
[2019-07-09 20:53] LABS: #Eosinphils 0.1 thou/uL (0.0-0.7); #Monocytes 0.6 thou/uL (0.11-0.59); #Neutrophils 7.4 thou/uL (1.40-6.50); %Basophils 0.2 % (0.0-1.0); %Eosinophils 0.5 % (0.0-10.0); %Lymphocytes 19.9 % (21.0-51.0); %Monocytes 5.6 % (0.0-10.0); %Neutrophils 73.7 % (42.0-75.0); Hemoglobin 9.4 g/dL (12.0-16.0); Mean Corpuscular HGB CONC 31.7 g/dL (32.0-36.0); Mean Corpuscular Hemoglobin 26.4 pg (27.0-31.0); Mean Corpuscular Volume 83.3 fL (78.0-98.0); Mean Platelet Volume 7.2 fL (7.4-10.4); Platelet Count 342 thou/uL (130-400); RBC Distribution Width 12.6 % (11.5-14.5); Red Blood Cell (RBC) Count 3.56 mill/uL (4.20-5.40)
[2019-07-09 20:54] LABS: Bacteria/HPF 3+ HPF (None Seen); Clarity HAZY (Clear); RBC/HPF 0-3 HPF (0-3)
[2019-07-09] MEDS ORDERED: Acetaminophen 500 MG TAB ONE (21:04)
[2019-07-09] MEDS ORDERED: Cephalexin 250 MG CAP ONE (21:04)
[2019-07-09 21:21] LABS: ALT (SGPT) 8 U/L (8-55); AST (SGOT) 10 U/L (5-34); Albumin 3.3 g/dL (3.5-5.0); Alkaline Phosphatase 82 U/L (40-110); Anion Gap 13 mmol/L (10-20); BUN (Urea Nitrogen) Less than 4 mg/dL (7.0-18.7); Bilirubin, Total 0.2 mg/dL (0.2-1.2); Calc. Creatinine Clearance 0 mL/min (70-130); Calcium 7.9 mg/dL (7.8-10.44); Carbon Dioxide 18 mmol/L (22-29); Chloride 107 mmol/L (98-107); Estimated GFR-MDRD Greater than 90; Globulin 3.1 g/dL (2.4-3.5); Glucose 119 mg/dL (70-105); Potassium 3.2 mmol/L (3.5-5.1); Protein, Total 6.4 g/dL (6.0-8.3); Sodium 135 mmol/L (136-145)
== END 2019-07-09 21:08 | disposition home or self-care (01) ==
LOC: NAV ERS 20:08
DX: O23.43 Unspecified infection of urinary tract in pregnancy, third trimester (principal); O99.89 Other specified diseases and conditions complicating pregnancy, childbirth and the puerperium; M54.5 Low back pain; Z3A.29 29 weeks gestation of pregnancy
CPT/HCPCS: 80053; 81003; 81015; 85025; 99283

== ENCOUNTER 2019-12-23 10:42 | Emergency (ER) | payer OTHER ==
--- NOTE | 2019-12-23 11:41 | RAD ---
EXAM: Single view of the chest HISTORY: Chest pain COMPARISON: None FINDINGS: Single view of the chest shows a normal sized cardiomediastinal silhouette. There is no lovin dence of consolidation, mass, or pleural effusion. The bones are unremarkable IMPRESSION: No evidence of acute cardiopulmonary disease
[2019-12-23] MEDS ORDERED: Ibuprofen 800 MG TAB ONE (11:52)
[2019-12-23] MEDS ORDERED: Dexamethasone 4 mg/ml Vial ONE (11:52)
[2019-12-24 14:43] LABS: SARS-CoV-2 MS2 Positive; SARS-CoV-2 N Gene Negative; SARS-CoV-2 S Gene Negative; SARS-CoV-2 by NAA Not Detected (NotDetected); SARS-CoV-2 orf1ab Negative
== END 2019-12-23 13:10 | disposition home or self-care (01) ==
LOC: NAV ERS 10:42
DX: R07.9 Chest pain, unspecified (principal); L50.9 Urticaria, unspecified; Z20.828 Contact with and (suspected) exposure to other viral communicable diseases
CPT/HCPCS: 71045; 87635; 93005; 96372; J1100; U0003

== ENCOUNTER 2020-08-26 18:27 | Emergency (ER) | payer OTHER | END 2020-08-26 19:17 | disposition home or self-care (01) | LOC: NAV ERS 18:27 | DX: R10.13 Epigastric pain (principal) | CPT/HCPCS: 99283 ==

== ENCOUNTER 2020-09-06 20:55 | Emergency (ER) | payer OTHER ==
[2020-09-06 21:32] LABS: Bilirubin Negative (Negative); Blood, Urine Trace (Negative); Glucose, Urine (Dipstick) Negative (Negative); Ketone, Urine Negative (Negative); Leukocyte Trace (Negative); Nitrite Negative (Negative); Protein, Urine (Dipstick) Negative (Neg-Trace); Specific Gravity, Urine 1.025 (1.005-1.030); pH, Urine 6.5 (5.0-9.0)
[2020-09-06 21:33] LABS: Clarity SL HAZY (Clear)
[2020-09-06 21:34] LABS: Pregnancy Test - Urine (BHCG) POSITIVE (Negative); Pregu Control Background? CLEAR/WHITE (CLR/WHITE); Pregu Control Bar Appear? YES (CONTROL BAR); Specific Gravity 1.025 (1.002-1.036)
[2020-09-06 21:41] LABS: RBC/HPF 0-3 HPF (0-3); WBC/HPF 0-3 HPF (0-3)
[2020-09-06] MEDS ORDERED: Ondansetron ODT 4 MG TAB ONE (22:00)
== END 2020-09-06 22:03 | disposition home or self-care (01) ==
LOC: NAV ERS 20:55
DX: O99.351 Diseases of the nervous system complicating pregnancy, first trimester (principal); G40.909 Epilepsy, unspecified, not intractable, without status epilepticus
CPT/HCPCS: 81003; 81015; 81025; 99283; Q0162

== ENCOUNTER 2020-10-13 21:09 | Emergency (ER) | payer OTHER ==
[2020-10-13 21:46] LABS: Bilirubin Small (Negative); Blood, Urine Moderate (Negative); Clarity Slightly Cloudy (Clear); Glucose, Urine (Dipstick) Negative (Negative); Ketone, Urine 40 mg/dL (Negative); Leukocyte Small (Negative); Nitrite Negative (Negative); Protein, Urine (Dipstick) 30 mg/dL (Neg-Trace); Urobilinogen > or = 8.0 mg/dL (Less than 2)
[2020-10-13 21:48] LABS: Specific Gravity, Urine 1.029 (1.002-1.036)
[2020-10-13 22:01] LABS: Renal Epithelial 0-3 HPF (None Seen)
== END 2020-10-13 22:19 | disposition home or self-care (01) ==
LOC: NAV ERS 21:09
DX: O21.8 Other vomiting complicating pregnancy (principal); O99.891 Other specified diseases and conditions complicating pregnancy; M54.5 Low back pain
CPT/HCPCS: 81003; 81015; 87086; 99284

== ENCOUNTER 2020-11-01 12:25 | Emergency (ER) | payer OTHER ==
[2020-11-01 13:04] LABS: Bilirubin Negative (Negative); Blood, Urine Trace (Negative); Glucose, Urine (Dipstick) Negative (Negative); Ketone, Urine 80 mg/dL (Negative); Leukocyte Moderate (Negative); Nitrite Negative (Negative); Protein, Urine (Dipstick) Trace mg/dL (Neg-Trace)
[2020-11-01] MEDS ORDERED: Acetaminophen 325 MG TAB ONE (13:11)
[2020-11-01] MEDS ORDERED: Sodium Chloride 0.9% 1,000 ML ONE (13:11)
[2020-11-01] MEDS ORDERED: Morphine 4 MG/ML VIAL ONE (13:11)
[2020-11-01] MEDS ORDERED: Ondansetron PF 4 MG/2 ML Vial ONE (13:11)
[2020-11-01 13:13] LABS: Clarity Hazy (Clear)
[2020-11-01 13:14] LABS: Bacteria/HPF 1+ HPF (None Seen); Mucous/LPF 1+ LPF (<2+); Transitional Epithelial 0-3 HPF (None Seen)
[2020-11-01 13:17] LABS: Specific Gravity, Urine 1.024 (1.002-1.036)
[2020-11-01 13:27] LABS: #Basophils 0.1 thou/uL (0.0-0.2); #Eosinphils 0.1 thou/uL (0.0-0.7); #Lymphocytes 1.6 thou/uL (1.20-3.40); #Monocytes 0.6 thou/uL (0.11-0.59); %Basophils 0.5 % (0.0-1.0); %Eosinophils 0.9 % (0.0-10.0); %Lymphocytes 12.2 % (21.0-51.0); %Monocytes 4.3 % (0.0-10.0); Hemoglobin 9.9 g/dL (12.0-16.0); Mean Corpuscular HGB CONC 31.4 g/dL (32.0-36.0); Mean Corpuscular Hemoglobin 25.4 pg (27.0-31.0); Mean Corpuscular Volume 80.9 fL (78.0-98.0); Mean Platelet Volume 8.7 fL (7.4-10.4); Platelet Count 318 thou/uL (130-400); RBC Distribution Width 16.4 % (11.5-14.5); Red Blood Cell (RBC) Count 3.91 mill/uL (4.20-5.40); White Blood Cell (WBC) Count 13.4 thou/uL (4.8-10.8)
[2020-11-01 13:32] LABS: Anion Gap 12 mmol/L (10-20); BUN (Urea Nitrogen) 4 mg/dL (7.0-18.7); Calc. Creatinine Clearance 0 mL/min (70-130); Carbon Dioxide 19 mmol/L (22-29); Chloride 106 mmol/L (98-107); Potassium 3.4 mmol/L (3.5-5.1); Sodium 134 mmol/L (136-145)
[2020-11-01 13:33] LABS: ALT (SGPT) 10 U/L (8-55); AST (SGOT) 12 U/L (5-34); Albumin 3.5 g/dL (3.5-5.0); Alkaline Phosphatase 51 U/L (40-110); Bilirubin, Total 0.3 mg/dL (0.2-1.2); CRP (Inflammatory) 2.56 mg/dL (= or < 0.5); Calcium 8.6 mg/dL (7.8-10.44); Globulin 3.6 g/dL (2.4-3.5); Glucose 104 mg/dL (70-105); Lipase 42 U/L (8-78); Protein, Total 7.1 g/dL (6.0-8.3)
[2020-11-01] MEDS ORDERED: Sodium Chloride 0.9% 100 ML ONE (13:56)
[2020-11-01] MEDS ORDERED: cefTRIAXone\\ROCEPHIN 2 GM VIAL ONE (13:56)
== END 2020-11-01 15:45 | disposition short-term general hospital (02) ==
LOC: NAV ERS 12:25
DX: O23.41 Unspecified infection of urinary tract in pregnancy, first trimester (principal); Z3A.14 14 weeks gestation of pregnancy; O26.892 Other specified pregnancy related conditions, second trimester; R10.31 Right lower quadrant pain; O99.891 Other specified diseases and conditions complicating pregnancy; M54.5 Low back pain; R51.9 Headache, unspecified; Z79.899 Other long term (current) drug therapy
CPT/HCPCS: 80053; 81003; 81015; 83605; 83690; 85025; 86140; 87086; 96365; 96375; J0696; J2270; J2405; J3490; J7050

== ENCOUNTER 2020-12-30 16:40 | Emergency (ER) | payer OTHER ==
[2020-12-30] MEDS ORDERED: Acetaminophen 500 MG TAB ONE (17:24)
== END 2020-12-30 18:00 | disposition home or self-care (01) ==
LOC: NAV ERS 16:40
DX: O99.891 Other specified diseases and conditions complicating pregnancy (principal); R55 Syncope and collapse; M54.2 Cervicalgia; O9A.212 Injury, poisoning and certain other consequences of external causes complicating pregnancy, second trimester; S76.911A Strain of unspecified muscles, fascia and tendons at thigh level, right thigh, initial encounter; S40.021A Contusion of right upper arm, initial encounter; Z3A.23 23 weeks gestation of pregnancy; W19.XXXA Unspecified fall, initial encounter; Y92.512 Supermarket, store or market as the place of occurrence of the external cause
CPT/HCPCS: 93005

== ENCOUNTER 2021-03-27 10:22 | Emergency (ER) | payer OTHER ==
[2021-03-27 11:11] LABS: Bilirubin Negative (Negative); Blood, Urine Negative (Negative); Clarity Clear (Clear); Glucose, Urine (Dipstick) Negative (Negative); Ketone, Urine Negative (Negative); Leukocyte Negative (Negative); Nitrite Negative (Negative); Protein, Urine (Dipstick) Negative (Neg-Trace); Specific Gravity, Urine 1.015 (1.005-1.030)
[2021-03-27] MEDS ORDERED: Sodium Chloride 0.9% 1,000 ML ONE (11:17)
[2021-03-27 11:43] LABS: ALT (SGPT) 9 U/L (8-55); AST (SGOT) 21 U/L (5-34); Albumin 3.1 g/dL (3.5-5.0); Alkaline Phosphatase 174 U/L (40-110); Anion Gap 10 mmol/L (10-20); BUN (Urea Nitrogen) Less than 4 mg/dL (7.0-18.7); Bilirubin, Total 0.4 mg/dL (0.2-1.2); Calc. Creatinine Clearance 0 mL/min (70-130); Calcium 8.1 mg/dL (7.8-10.44); Carbon Dioxide 19 mmol/L (22-29); Chloride 109 mmol/L (98-107); Globulin 3.4 g/dL (2.4-3.5); Glucose 68 mg/dL (70-105); Potassium 3.8 mmol/L (3.5-5.1); Protein, Total 6.5 g/dL (6.0-8.3); Sodium 134 mmol/L (136-145)
[2021-03-27 11:45] LABS: #Lymphocytes 1.2 thou/uL (1.20-3.40); #Monocytes 0.6 thou/uL (0.11-0.59); #Neutrophils 4.6 thou/uL (1.40-6.50); %Basophils 0.7 % (0.0-1.0); %Eosinophils 0.5 % (0.0-10.0); %Lymphocytes 18.4 % (21.0-51.0); %Monocytes 9.3 % (0.0-10.0); %Neutrophils 71.1 % (42.0-75.0); Hemoglobin 8.1 g/dL (12.0-16.0); Mean Corpuscular HGB CONC 30.1 g/dL (32.0-36.0); Mean Corpuscular Hemoglobin 24.5 pg (27.0-31.0); Mean Corpuscular Volume 81.2 fL (78.0-98.0); Mean Platelet Volume 10.8 fL (7.4-10.4); Platelet Count 252 thou/uL (130-400); RBC Distribution Width 13.1 % (11.5-14.5); Red Blood Cell (RBC) Count 3.33 mill/uL (4.20-5.40); White Blood Cell (WBC) Count 6.5 thou/uL (4.8-10.8)
[2021-03-27 11:46] LABS: Anisocytosis SLIGHT = 6-15 cells (100X) (0-5/hpf); Hypochromia SLIGHT = 6-15 cells (100X) (0-5/hpf); MDiff Complete? YES; Platelet Morphology Comment Appears Adequate
== END 2021-03-27 12:13 | disposition home or self-care (01) ==
LOC: NAV ERS 10:22
DX: O99.891 Other specified diseases and conditions complicating pregnancy (principal); M54.50 Low back pain, unspecified; R10.30 Lower abdominal pain, unspecified; Z3A.36 36 weeks gestation of pregnancy
CPT/HCPCS: 51701; 80053; 81003; 85025; J7050

== ENCOUNTER 2021-07-07 11:06 | Emergency (ER) | payer OTHER ==
[2021-07-07] MEDS ORDERED: Ondansetron PF 4 MG/2 ML Vial ONE (11:33)
[2021-07-07] MEDS ORDERED: Ketorolac Tromethamine 30 MG/ML VIAL ONE (11:33)
[2021-07-07 11:35] LABS: Bilirubin Negative (Negative); Blood, Urine Trace (Negative); Clarity Clear (Clear); Glucose, Urine (Dipstick) Negative (Negative); Ketone, Urine Negative (Negative); Leukocyte Negative (Negative); Nitrite Negative (Negative); Protein, Urine (Dipstick) Negative (Neg-Trace); Specific Gravity, Urine 1.025 (1.005-1.030); Urobilinogen 0.2 mg/dL (Less than 2); pH, Urine 6.5 (5.0-9.0)
[2021-07-07 11:47] LABS: Bacteria/HPF None Seen HPF (None Seen); Mucous/LPF 1+ LPF (<2+); RBC/HPF 0-3 HPF (0-3); Squamous Epithelial 0-3 HPF (0-3); WBC/HPF 0-3 HPF (0-3)
[2021-07-07 12:14] LABS: BHCG - Serum Negative (NEGATIVE); Pregs Control Bar Appear? YES (CONTROL BAR)
[2021-07-07 12:16] LABS: #Eosinphils 0.1 thou/uL (0.0-0.7); #Lymphocytes 1.2 thou/uL (1.20-3.40); #Monocytes 0.5 thou/uL (0.11-0.59); #Neutrophils 4.2 thou/uL (1.40-6.50); %Basophils 0.6 % (0.0-1.0); %Eosinophils 1.1 % (0.0-10.0); %Lymphocytes 20.2 % (21.0-51.0); %Monocytes 8.9 % (0.0-10.0); %Neutrophils 69.2 % (42.0-75.0); Hemoglobin 10.4 g/dL (12.0-16.0); Mean Corpuscular HGB CONC 29.8 g/dL (32.0-36.0); Mean Corpuscular Hemoglobin 23.7 pg (27.0-31.0); Mean Corpuscular Volume 79.6 fL (78.0-98.0); Mean Platelet Volume 7.9 fL (7.4-10.4); Platelet Count 391 thou/uL (130-400); RBC Distribution Width 17.1 % (11.5-14.5); White Blood Cell (WBC) Count 6.1 thou/uL (4.8-10.8)
[2021-07-07 12:23] LABS: ALT (SGPT) 14 U/L (8-55); AST (SGOT) 17 U/L (5-34); Albumin 4.2 g/dL (3.5-5.0); Alkaline Phosphatase 66 U/L (40-110); Anion Gap 15 mmol/L (10-20); BUN (Urea Nitrogen) 10 mg/dL (7.0-18.7); Bilirubin, Total 0.5 mg/dL (0.2-1.2); Calc. Creatinine Clearance 0 mL/min (70-130); Calcium 8.8 mg/dL (7.8-10.44); Carbon Dioxide 21 mmol/L (22-29); Chloride 107 mmol/L (98-107); Globulin 3.6 g/dL (2.4-3.5); Glucose 81 mg/dL (70-105); Lipase 43 U/L (8-78); Potassium 3.6 mmol/L (3.5-5.1); Protein, Total 7.8 g/dL (6.0-8.3); Sodium 139 mmol/L (136-145)
== END 2021-07-07 13:34 | disposition home or self-care (01) ==
LOC: NAV ERS 11:06
DX: R10.84 Generalized abdominal pain (principal)
CPT/HCPCS: 74177; 80053; 81003; 81015; 83690; 84703; 85025; 96374; 96375; J1885; J2405

== ENCOUNTER 2022-02-26 21:10 | Emergency (ER) | payer OTHER ==
[2022-02-26] MEDS ORDERED: Mag-Al Plus 1200 MG/1200 MG/120 MG/30 ML UDCUP ONE (22:03)
[2022-02-26] MEDS ORDERED: Acetaminophen 500 MG TAB ONE (22:03)
[2022-02-26] MEDS ORDERED: Ondansetron ODT 4 MG TAB ONE (22:08)
[2022-02-26 22:39] LABS: Bilirubin Negative (Negative); Blood, Urine Trace (Negative); Clarity Clear (Clear); Glucose, Urine (Dipstick) Negative (Negative); Ketone, Urine Trace mg/dL (Negative); Leukocyte Negative (Negative); Nitrite Negative (Negative); Protein, Urine (Dipstick) Negative (Neg-Trace)
[2022-02-26 22:41] LABS: #Basophils 0.1 thou/uL (0.0-0.2); #Eosinphils 0.1 thou/uL (0.0-0.7); #Lymphocytes 1.9 thou/uL (1.20-3.40); #Monocytes 0.8 thou/uL (0.11-0.59); #Neutrophils 8.4 thou/uL (1.40-6.50); %Basophils 0.5 % (0.0-1.0); %Eosinophils 0.6 % (0.0-10.0); %Lymphocytes 16.8 % (21.0-51.0); %Monocytes 7.1 % (0.0-10.0); Hemoglobin 11.7 g/dL (12.0-16.0); Mean Corpuscular HGB CONC 31.7 g/dL (32.0-36.0); Mean Corpuscular Hemoglobin 27.6 pg (27.0-31.0); Mean Platelet Volume 7.9 fL (7.4-10.4); Platelet Count 318 thou/uL (130-400); RBC Distribution Width 13.5 % (11.5-14.5); Red Blood Cell (RBC) Count 4.25 mill/uL (4.20-5.40); White Blood Cell (WBC) Count 11.2 thou/uL (4.8-10.8)
[2022-02-26 22:42] LABS: Bacteria/HPF None Seen HPF (None Seen); RBC/HPF 0-3 HPF (0-3); Squamous Epithelial 0-3 HPF (0-3); WBC/HPF 0-3 HPF (0-3)
[2022-02-26 22:47] LABS: Amphetamine Not Detected (NotDetected); Benzodiazepine Screen Not Detected (NotDetected); Cocaine Metabolite Screen Not Detected (NotDetected); Methadone Not Detected (NotDetected); Methamphetamine Not Detected (NotDetected); Opiate Screen Not Detected (NotDetected); Phencyclidine (PCP) Not Detected (NotDetected); THC/Cannabinoid Screen Not Detected (NotDetected); Tricyclic Screen Not Detected (NotDetected)
[2022-02-26 22:48] LABS: Barbiturates Screen Not Detected (NotDetected); Medtox Control Line Valid? VALID (VALID); Oxycodone Screen Not Detected (NotDetected)
[2022-02-26 22:49] LABS: ALT (SGPT) 11 U/L (8-55); AST (SGOT) 13 U/L (5-34); Albumin 4.2 g/dL (3.5-5.0); Alkaline Phosphatase 45 U/L (40-110); Anion Gap 17 mmol/L (10-20); BUN (Urea Nitrogen) 7 mg/dL (7.0-18.7); Bilirubin, Total 0.4 mg/dL (0.2-1.2); Calc. Creatinine Clearance 0 mL/min (70-130); Calcium 8.6 mg/dL (7.8-10.44); Carbon Dioxide 20 mmol/L (22-29); Chloride 105 mmol/L (98-107); Estimated GFR 116; Globulin 3.4 g/dL (2.4-3.5); Glucose 85 mg/dL (70-105); Lipase 54 U/L (8-78); Potassium 3.3 mmol/L (3.5-5.1); Protein, Total 7.6 g/dL (6.0-8.3); Sodium 139 mmol/L (136-145)
[2022-02-26] MEDS ORDERED: Cyclobenzaprine 10 MG TAB ONE (23:11)
== END 2022-02-27 01:07 | disposition short-term general hospital (02) ==
LOC: NAV ERS 21:10
DX: O99.891 Other specified diseases and conditions complicating pregnancy (principal); M54.50 Low back pain, unspecified; R10.814 Left lower quadrant abdominal tenderness; Z3A.09 9 weeks gestation of pregnancy
CPT/HCPCS: 80053; 80306; 81001; 83690; 84484; 85025; 93005; Q0162

== ENCOUNTER 2022-03-20 20:47 | Emergency (ER) | payer OTHER ==
[2022-03-20 21:16] LABS: Bilirubin Negative (Negative); Blood, Urine Trace (Negative); Clarity Clear (Clear); Glucose, Urine (Dipstick) Negative (Negative); Ketone, Urine > or equal to 80 mg/dL (Negative); Leukocyte Trace (Negative); Nitrite Negative (Negative); Protein, Urine (Dipstick) Negative (Neg-Trace); Specific Gravity, Urine 1.025 (1.005-1.030); Urobilinogen 0.2 mg/dL (Less than 2)
[2022-03-20 21:20] LABS: Bacteria/HPF Rare-Few HPF (None Seen); RBC/HPF 0-3 HPF (0-3); Squamous Epithelial 0-3 HPF (0-3); WBC/HPF 0-3 HPF (0-3)
== END 2022-03-20 21:35 | disposition home or self-care (01) ==
LOC: NAV ERS 20:47
DX: O21.9 Vomiting of pregnancy, unspecified (principal); O99.891 Other specified diseases and conditions complicating pregnancy; R10.32 Left lower quadrant pain; Z3A.12 12 weeks gestation of pregnancy
CPT/HCPCS: 81003; 81015

== ENCOUNTER 2022-04-09 20:18 | Emergency (ER) | payer OTHER | END 2022-04-09 21:23 | disposition home or self-care (01) | LOC: NAV ERS 20:18 | DX: J10.1 Influenza due to other identified influenza virus with other respiratory manifestations (principal) | CPT/HCPCS: 87081; 87430; 87804; 99283 ==

== ENCOUNTER 2023-10-27 17:13 | Emergency (ER) | payer OTHER ==
[2023-10-27] MEDS ORDERED: Ketorolac Tromethamine 30 MG (1 mL) VIAL ONE (18:20)
== END 2023-10-27 18:40 | disposition home or self-care (01) ==
LOC: NAV ERS 17:13
DX: S93.601A Unspecified sprain of right foot, initial encounter (principal); X50.1XXA Overexertion from prolonged static or awkward postures, initial encounter
CPT/HCPCS: 96372; J1885